=== PATIENT | female | born 1975 | race Caucasian/White ===

== ENCOUNTER 2021-10-02 01:15 | Emergency (ER) | payer BC ==
[~2021-10-02 01:15] MED LIST: Aspirin 81 MG Tab.Chew PO ONE
[2021-10-02] MEDS: Nitroglycerin 0.4 MG Tab.SL SL PRN ×2 (01:15→02:20)
[2021-10-02] MEDS ORDERED: Morphine 2 MG/ML SYRINGE IVPUSH ONE ×2 (01:32→02:07)
[2021-10-02] MEDS: LORazepam 2 MG/ML SDV IVPUSH PRN ×2 (02:45→17:46)
[2021-10-02] MEDS ORDERED: Sodium Chloride 0.9% 1,000 ML IV SCH (02:45)
[2021-10-02] MEDS ORDERED: Sodium Chloride 0.9% 1,000 ML IV ONE (07:02)
[2021-10-02] MEDS ORDERED: Acetaminophen 325 MG Tab PO ONE (11:34)
[2021-10-02] MEDS ORDERED: Acetaminophen 325 MG Tab ONE (11:37)
== END 2021-10-02 18:50 ==
LOC: LB.ED 01:15
DX: R07.9 Chest pain, unspecified (principal); F22 Delusional disorders; I10 Essential (primary) hypertension; Z20.822 Contact with and (suspected) exposure to COVID-19
CPT/HCPCS: 36415; 71045; 80053; 80307; 81001; 81003; 84443; 84484; 85025; 85379; 85610; 87086; 93005; 96374; 96375; 96376; 99285-25; A0425; A0429; A9270-GY; J2060; J2270; U0002